=== PATIENT | male | born 1990 | race Caucasian/White ===

== ENCOUNTER 2018-05-24 15:39 | Emergency (ER) | END 2018-05-24 18:11 | disposition home or self-care (01) ==

== ENCOUNTER 2018-07-07 12:21 | Emergency (ER) | END 2018-07-07 13:08 | disposition home or self-care (01) ==

== ENCOUNTER 2019-07-06 15:30 | Emergency (ER) | payer MEDICAID, OTHER ==
[~2019-07-06] VITALS: Ht 162.6 cm; Wt 70.0 kg
[~2019-07-06 15:30] MED LIST: FAMO-96 PO; PSYL3.4P5 PO
[2019-07-06 15:33] VITALS: BP 135/80; PULSE 102; RESP 18; Ht 162.6 cm; Wt 70.0 kg
[2019-07-06] MEDS ORDERED: DIPHTH/TET/ACEL PERTUSS (ADULT) 0.5 ML VIAL IM* ONE (16:30)
== END 2019-07-06 16:18 | disposition home or self-care (01) ==
LOC: E/R 15:30
DX: S51.812A Laceration without foreign body of left forearm, initial encounter (principal); S61.012A Laceration without foreign body of left thumb without damage to nail, initial encounter; S60.311A Abrasion of right thumb, initial encounter; X58.XXXA Exposure to other specified factors, initial encounter; Y92.9 Unspecified place or not applicable; Z23 Encounter for immunization
CPT/HCPCS: 90471; 90715